=== PATIENT | female | born 1975 | race Hispanic/Latino ===

== ENCOUNTER → 2018-07-06 | Outpatient (CLI) | payer OTHER ==
--- NOTE | 2018-07-06 12:06 | Diagnostic Imaging Report ---
FLUOROSCOPIC BARIUM SWALLOW WITH UPPER GI HISTORY: GERD. ECHOCARDIOGRAPH TECH: Zach Marquez MD Comparison: None. Procedure: Double contrast barium swallow and upper GI fluoroscopic exam was performed using thick and thin oral barium and effervescent crystals. Radiation Exposure: Fluoroscopy Time: 1.4 minutes Radiation dose: 28.7 mGy DISCUSSION: ESOPHAGUS: Motility: Within normal limits. Unremarkable. Mucosa: Unremarkable. Distensibility: Normal. GASTROESOPHAGEAL JUNCTION: No evidence of hiatal hernia. GASTROESOPHAGEAL REFLUX: Mild inducible gastroesophageal reflux with water siphon test. STOMACH: Normally distensible and demonstrates normal contours and mucosal pattern. DUODENUM/PROXIMAL SMALL BOWEL: Unremarkable in appearance. IMPRESSION: Mild inducible gastroesophageal reflux. Otherwise unremarkable study. Signed by: Dr. Zach Marquez MD on 07/06/2018 12:03 PM
== END ==
LOC: DX 08:43
PROVIDERS: ATTEND Family Medicine
DX: K21.9 Gastro-esophageal reflux disease without esophagitis (principal)
CPT/HCPCS: 74246

== ENCOUNTER → 2021-04-22 | Outpatient (CLI) | payer OTHER | LOC: US 12:30 | PROVIDERS: ATTEND Family Medicine | DX: N93.8 Other specified abnormal uterine and vaginal bleeding (principal) | CPT/HCPCS: 76830; 76856 ==

== ENCOUNTER → 2021-08-27 | Outpatient (CLI) | payer OTHER | LOC: RAD 09:15 | PROVIDERS: ATTEND Family Medicine | DX: M25.512 Pain in left shoulder (principal) ==

== ENCOUNTER → 2021-10-23 | Outpatient (CLI) | payer OTHER | LOC: US 11:46 | PROVIDERS: ATTEND Family Medicine | DX: N92.0 Excessive and frequent menstruation with regular cycle (principal) | CPT/HCPCS: 76830; 76856 ==

== ENCOUNTER 2022-04-26 09:47 | Emergency (ER) | payer OTHER ==
[~2022-04-26] VITALS: Ht 157.5 cm; Wt 64.0 kg
[2022-04-26 11:02] LABS: CLARITY,URINE TURBID (CLEAR); COLOR,URINE YELLOW (YELLOW); LEUKOCYTE ESTERASE ,URINE MODERATE (NEGATIVE); NITRITE,URINE POSITIVE (NEGATIVE); PROTEIN,URINE DIPSTICK 1+ (NEGATIVE)
[2022-04-26 11:03] LABS: BACTERIA,URINE MANY /HPF; EPITHELIAL CELLS,URINE FEW /LPF; KETONES,URINE 2+ (NEGATIVE); URINE UROBILINOGEN 0.2 mg/dL (0.2 - 1); WBC,URINE (MAN) >50 /HPF (0-5)
[2022-04-26] MEDS ORDERED: ONDANSETRON HCL 4 MG ORAL DISINTEGRATING TAB PO ONE (11:30)
[2022-04-26] MEDS ORDERED: HYDROCODONE/APAP 5MG-325MG TAB PO ONE (11:30)
[2022-04-26 11:49] LABS: BASOPHILS % 0.3 % (0.0-1.0); EOSINOPHILS % 0.1 % (0.0-6.0); HEMATOCRIT 41.6 % (34.2-44.1); HEMOGLOBIN 13.2 g/dL (12.0-16.0); LYMPHOCYTES # (AUTO) 1.4 (1.0-3.2); LYMPHOCYTES % 10.4 % (18.0-39.1); MEAN CORPUSCULAR HEMOGLOBIN 29.2 pg (28-32); MEAN CORPUSCULAR HGB CONC 31.7 g/dL (31-35); MONOCYTES # (AUTO) 0.8 (0.2-0.8); NEUTROPHILS # (AUTO) 10.8 (2.1-6.9); NEUTROPHILS % 82.9 % (38.7-80.0); PLATELET COUNT 281 x10e3/uL (140-360); RED BLOOD COUNT 4.52 x10e6/uL (3.6-5.1); RED CELL DISTRIBUTION WIDTH 13.2 % (11.7-14.4)
[2022-04-26 12:12] LABS: LIPASE 10 U/L (8-78)
[2022-04-26 12:13] LABS: ANION GAP 16.2 mmol/L (8-16); CALCIUM 9.9 mg/dL (8.4-10.2); CREATININE, SERUM 0.84 mg/dL (0.57-1.11); POTASSIUM 3.2 mmol/L (3.5-5.1)
[2022-04-26] MEDS ORDERED: SODIUM CHLORIDE 0.9% 1000ML 1,000 ML IV SCH (12:30)
[2022-04-26] MEDS ORDERED: CEFTRIAXONE 1 GM VIAL IV ONE (12:45)
[2022-04-26] MEDS: CEFTRIAXONE 1 GM VIAL IM ONE ×2 (12:48→12:49)
[2022-04-26 13:03] LABS: ALBUMIN 4.3 g/dL (3.5-5.0); ALBUMIN/GLOBULIN RATIO 1.1 (0.8-2.0)
[2022-04-26] MEDS ORDERED: IOPAMIDOL 370 MG/ML 100 ML INFUS..BTL INJ ONE (15:05)
[2022-04-26] MEDS ORDERED: CEFDINIR300 MG PO (15:31)
[2022-04-26] MEDS ORDERED: NAPROXEN500 MG PO (15:32)
[2022-04-26] MEDS ORDERED: ONDANSETRON ODT4 MG PO (15:32)
== END 2022-04-26 16:05 | disposition home or self-care (01) ==
LOC: ER 10:36
DX: R10.31 Right lower quadrant pain (principal); N12 Tubulo-interstitial nephritis, not specified as acute or chronic; R11.2 Nausea with vomiting, unspecified; E11.65 Type 2 diabetes mellitus with hyperglycemia; I10 Essential (primary) hypertension
CPT/HCPCS: 36415; 74177; 80053; 81001; 83605; 83690; 84702; 85025; 87040; 87086; 87186; 99284; J0696; J7030; Q0162; Q9967